=== PATIENT | male | born 1950 | race Caucasian/White ===

== ENCOUNTER 2016-09-26 10:28 | Inpatient (IN) | payer MEDICARE, MEDICAID, SELFPAY ==
[~2016-09-26 10:28] MED LIST: ACETAMINOPHEN325 M2 PO; AMBIEN5 M1 PO; ASPIRIN81 M1 PO; AUGMENTIN 875-1 EAC2 PO; CENTRUM CHEWAB1 EACH PO; CERTAVITE SR-A1 EACH PO; CLARITIN10 M6 PO; CLINDAMYCIN HC300 M2 PO; DULCOLAX10 MG PR; DULCOLAX5 M1 PO; EFFEXOR XR75 M1 PO; FINASTERIDE5 M2 PO; FLOMAX0.4 M1 PO; FLONASE ALLERG9.9 ML; LASIX20 M1 PO; LOVENOX100 MG/1 M SC; LOVENOX80 MG/0.1 SC; NORCO 5-325 TA1 EACH PO; PROTONIX40 M2 PO; RANITIDINE HCL300 M1 PO; SILDENAFIL20 M2 PO; SULFAMYLON60 GM EXT; SYNTHROID75 MC1 PO; TRAMADOL HCL50 M2 PO; VENLAFAXINE HCL75 M3 PO; VITAMIN D2000 UNIT PO; WARFARIN SODIU7.5 M2 PO; WARFARIN SODIUM10 M1 PO; ZEBETA5 M2 PO; [UNRECOGNIZED DRUG - CODE] PO; [UNRECOGNIZED DRUG - OTHER]
[2016-09-26 11:36] LABS: BASO % 0.9 % (0-2); EOS % 1.4 % (0-7); EOSINOPHIL ABSOLUTE COUNT 0.1 tho/cmm (0.0-0.7); HCT-HEMATOCRIT 38.4 % (36.0-53.5); HGB-HEMOGLOBIN 11.6 gm/dl (13.5-17.0); LYMPH % 12.9 % (20-45); LYMPH ABSOLUTE COUNT 0.6 tho/cmm (0.8-4.5); MCH (MEAN CORPUSCULAR HGB) 24.8 pg (28.0-32.0); MCHC MEAN CORPUSCULAR HGB CONC 30.2 % (32.0-36.0); MCV (MEAN CELL VOLUME) 82.1 fl (82.0-96.0); MEAN PLATELET VOLUME 10.7 cmc (9.4-12.4); MONO % 9.3 % (0-12); MONOCYTE ABSOLUTE COUNT 0.4 tho/cmm (0.0-1.2); NEUTROPHIL ABSOLUTE COUNT 3.3 tho/cmm (1.6-8.0); NEUTROPHIL-AUTOMATED 3.3 tho/cmm (1.6-8.0); NEUTROPHILS % 75.5 % (40-80); PLATELET COUNT 184 tho/cmm (150-450); RED BLOOD COUNT 4.68 mil/cmm (4.40-5.70); RED CELL DISTRIBUTION WIDTH 20.8 % (12.4-16.4); WHITE BLOOD COUNT 4.4 tho/cmm (4.0-10.0)
[2016-09-26 11:39] LABS: PROTHROMBIN TIME 11.9 SECONDS (9.0-13.6)
[2016-09-26 11:46] LABS: ANION GAP 10 mmol/L (0-20); BLOOD UREA NITROGEN 37 mg/dl (6-24); CALCIUM 8.5 mg/dl (8.5-10.5); CARBON DIOXIDE-VENOUS 23 mmol/L (22-32); CHLORIDE 110 mmol/l (96-110); CREATININE 1.78 mg/dl (0.60-1.30); GLUCOSE 85 mg/dL (70-110); SODIUM 138 mmol/L (135-145); eGFR VALUE FOR BLACK 46 mL/Min
[2016-09-27 06:12] LABS: IMMATURE GRANULOCYTES ABSOLUTE 0.01 tho/cmm (0-0.03); IMMATURE GRANULOCYTES PERCENT 0.1 % (0-0.3); LYMPH % 7.2 % (20-45); LYMPH ABSOLUTE COUNT 0.6 tho/cmm (0.8-4.5); MCV (MEAN CELL VOLUME) 81.8 fl (82.0-96.0); MEAN PLATELET VOLUME 10.1 cmc (9.4-12.4); MONOCYTE ABSOLUTE COUNT 0.6 tho/cmm (0.0-1.2); NEUTROPHIL ABSOLUTE COUNT 6.8 tho/cmm (1.6-8.0); NEUTROPHIL-AUTOMATED 6.8 tho/cmm (1.6-8.0); NEUTROPHILS % 84.7 % (40-80); PLATELET COUNT 163 tho/cmm (150-450); RED BLOOD COUNT 3.51 mil/cmm (4.40-5.70); RED CELL DISTRIBUTION WIDTH 20.6 % (12.4-16.4)
[2016-09-27 06:13] LABS: INR 1.1 INR (0.9-1.1); PROTHROMBIN TIME 12.8 SECONDS (9.0-13.6)
[2016-09-27 06:14] LABS: HCT-HEMATOCRIT 28.7 % (36.0-53.5); HGB-HEMOGLOBIN 8.6 gm/dl (13.5-17.0); MCH (MEAN CORPUSCULAR HGB) 24.5 pg (28.0-32.0)
[2016-09-27 06:26] LABS: ANION GAP 15 mmol/L (0-20); BLOOD UREA NITROGEN 31 mg/dl (6-24); CALCIUM 8.1 mg/dl (8.5-10.5); CARBON DIOXIDE-VENOUS 20 mmol/L (22-32); CHLORIDE 107 mmol/l (96-110); CREATININE 1.59 mg/dl (0.60-1.30); GLUCOSE 105 mg/dL (70-110); POTASSIUM 5.5 mmol/L (3.7-5.1); SODIUM 136 mmol/L (135-145); eGFR VALUE FOR BLACK 53 mL/Min
[2016-09-28 06:25] LABS: INR 1.4 INR (0.9-1.1); PROTHROMBIN TIME 16.6 SECONDS (9.0-13.6)
[2016-09-28 06:27] LABS: BASO % 0.5 % (0-2); EOS % 0.7 % (0-7); EOSINOPHIL ABSOLUTE COUNT 0.1 tho/cmm (0.0-0.7); HCT-HEMATOCRIT 27.9 % (36.0-53.5); HGB-HEMOGLOBIN 8.4 gm/dl (13.5-17.0); IMMATURE GRANULOCYTES ABSOLUTE 0.01 tho/cmm (0-0.03); IMMATURE GRANULOCYTES PERCENT 0.1 % (0-0.3); LYMPH ABSOLUTE COUNT 0.8 tho/cmm (0.8-4.5); MCH (MEAN CORPUSCULAR HGB) 24.4 pg (28.0-32.0); MCHC MEAN CORPUSCULAR HGB CONC 30.1 % (32.0-36.0); MCV (MEAN CELL VOLUME) 81.1 fl (82.0-96.0); MONO % 10.8 % (0-12); MONOCYTE ABSOLUTE COUNT 0.8 tho/cmm (0.0-1.2); NEUTROPHIL ABSOLUTE COUNT 5.8 tho/cmm (1.6-8.0); NEUTROPHIL-AUTOMATED 5.8 tho/cmm (1.6-8.0); NEUTROPHILS % 76.9 % (40-80); PLATELET COUNT 174 tho/cmm (150-450); RED BLOOD COUNT 3.44 mil/cmm (4.40-5.70); RED CELL DISTRIBUTION WIDTH 20.5 % (12.4-16.4); WHITE BLOOD COUNT 7.5 tho/cmm (4.0-10.0)
[2016-09-28 06:38] LABS: ANION GAP 14 mmol/L (0-20); BLOOD UREA NITROGEN 38 mg/dl (6-24); CALCIUM 8.1 mg/dl (8.5-10.5); CARBON DIOXIDE-VENOUS 23 mmol/L (22-32); CHLORIDE 103 mmol/l (96-110); GLUCOSE 115 mg/dL (70-110); POTASSIUM 4.5 mmol/L (3.7-5.1); SODIUM 135 mmol/L (135-145); eGFR VALUE FOR BLACK 35 mL/Min
[2016-09-28 06:43] LABS: CREATININE 2.25 mg/dl (0.60-1.30)
[2016-09-29 05:56] LABS: BASO % 0.6 % (0-2); EOS % 0.9 % (0-7); EOSINOPHIL ABSOLUTE COUNT 0.1 tho/cmm (0.0-0.7); HCT-HEMATOCRIT 25.8 % (36.0-53.5); HGB-HEMOGLOBIN 7.9 gm/dl (13.5-17.0); IMMATURE GRANULOCYTES ABSOLUTE 0.02 tho/cmm (0-0.03); IMMATURE GRANULOCYTES PERCENT 0.3 % (0-0.3); LYMPH % 9.4 % (20-45); LYMPH ABSOLUTE COUNT 0.6 tho/cmm (0.8-4.5); MCH (MEAN CORPUSCULAR HGB) 24.5 pg (28.0-32.0); MCHC MEAN CORPUSCULAR HGB CONC 30.6 % (32.0-36.0); MCV (MEAN CELL VOLUME) 80.1 fl (82.0-96.0); MEAN PLATELET VOLUME 10.3 cmc (9.4-12.4); MONO % 11.5 % (0-12); MONOCYTE ABSOLUTE COUNT 0.7 tho/cmm (0.0-1.2); NEUTROPHIL ABSOLUTE COUNT 4.9 tho/cmm (1.6-8.0); NEUTROPHIL-AUTOMATED 4.9 tho/cmm (1.6-8.0); NEUTROPHILS % 77.3 % (40-80); PLATELET COUNT 154 tho/cmm (150-450); RED BLOOD COUNT 3.22 mil/cmm (4.40-5.70); RED CELL DISTRIBUTION WIDTH 20.5 % (12.4-16.4); WHITE BLOOD COUNT 6.4 tho/cmm (4.0-10.0)
[2016-09-29 05:59] LABS: INR 1.8 INR (0.9-1.1)
[2016-09-29 06:30] LABS: ALB/GLOB RATIO 0.6 (0.8-2.0); ALKALINE PHOSPHATASE 94 U/L (33-138); ALT/SGPT 10 U/L (12-78); ANION GAP 13 mmol/L (0-20); AST/SGOT 39 U/L (10-40); BILIRUBIN,TOTAL 0.3 mg/dl (0.0-1.5); BLOOD UREA NITROGEN 34 mg/dl (6-24); CALCIUM 8.1 mg/dl (8.5-10.5); CARBON DIOXIDE-VENOUS 23 mmol/L (22-32); CHLORIDE 102 mmol/l (96-110); CREATININE 1.96 mg/dl (0.60-1.30); GLUCOSE 89 mg/dL (70-110); POTASSIUM 4.1 mmol/L (3.7-5.1); SODIUM 134 mmol/L (135-145); eGFR VALUE FOR BLACK 41 mL/Min
[2016-09-29] MEDS ORDERED: ULTRAM50 M1 PO (10:17)
[2016-09-29] MEDS ORDERED: BACITRACIN28.4 G2 TP (10:18)
[2017-03-05] MEDS ORDERED: TYLENOL325 M2 PO (21:08)
[2017-03-05] MEDS ORDERED: ALLOPURINOL100 M1 PO (21:08)
[2017-03-05] MEDS ORDERED: ASPIRIN81 M1 PO (21:09)
[2017-03-05] MEDS ORDERED: BISOPROLOL FUMA10 M1 PO (21:09)
[2017-03-05] MEDS ORDERED: CHLOR-TRIMETON4 M1 PO (21:10)
[2017-03-05] MEDS ORDERED: SYNTHROID75 MC1 PO (21:11)
[2017-03-05] MEDS ORDERED: FLONASE ALLERG9.9 ML (21:11)
[2017-03-05] MEDS ORDERED: LASIX20 M1 PO (21:11)
[2017-03-05] MEDS ORDERED: PROTONIX40 M2 PO (21:14)
[2017-03-05] MEDS ORDERED: CENTRUM CHEWAB1 EACH PO (21:14)
[2017-03-05] MEDS ORDERED: RANITIDINE HCL300 M2 PO (21:15)
[2017-03-05] MEDS ORDERED: SILDENAFIL20 M2 (21:15)
[2017-03-05] MEDS ORDERED: EFFEXOR XR75 M1 PO (21:16)
[2017-03-05] MEDS ORDERED: FLOMAX0.4 M1 PO (21:16)
[2017-03-05] MEDS ORDERED: ULTRAM50 M1 PO (21:16)
[2017-03-05] MEDS ORDERED: COUMADIN5 M2 PO ×2 (21:23→21:27)
[2017-03-06] MEDS ORDERED: PROSCAR5 M1 PO (11:35)
[2017-03-06] MEDS ORDERED: VITAMIN D32000 UNI2 PO (11:36)
[2017-03-24] MEDS ORDERED: VIBRAMYCIN100 M1 PO (11:38)
[2017-03-24] MEDS ORDERED: COMBIVENT RESPIM4 G1 AERO NEB (11:42)
[2017-03-24] MEDS ORDERED: AMBIEN5 M1 PO (11:57)
[2017-03-24] MEDS ORDERED: POLYETHYLENE G255 G1 PO (12:01)
[2017-03-24] MEDS ORDERED: SENNA PLUS TAB1 EAC1 PO (12:05)
[2017-03-24] MEDS ORDERED: FLONASE ALLERG9.9 ML ×2 (12:07→12:09)
[2017-03-24] MEDS ORDERED: MELATONIN3 M4 PO (12:22)
== END 2016-09-29 14:30 | DRG 470 ==
LOC: SHSA 10:28 → ORE 13:15 → PACU 15:36 → PCUB 16:45
PROVIDERS: Anesthesiology; Internal Medicine; Internal Medicine Cardiovascular Disease; Internal Medicine Interventional Cardiology; ADMIT Orthopaedic Surgery Orthopaedic Surgery of the Spine
PROC: 0SRD0J9 Replacement of Left Knee Joint with Synthetic Substitute, Cemented, Open Approach (ICD-10-PCS; principal; 2016-09-26)
DX: M17.12 Unilateral primary osteoarthritis, left knee (principal); N17.9 Acute kidney failure, unspecified; N18.3 Chronic kidney disease, stage 3 (moderate); E87.5 Hyperkalemia; D62 Acute posthemorrhagic anemia; N18.9 Chronic kidney disease, unspecified; K59.00 Constipation, unspecified; I12.9 Hypertensive chronic kidney disease with stage 1 through stage 4 chronic kidney disease, or unspecified chronic kidney disease; Z88.2 Allergy status to sulfonamides; Z88.1 Allergy status to other antibiotic agents; Z95.810 Presence of automatic (implantable) cardiac defibrillator; Z79.01 Long term (current) use of anticoagulants
CPT/HCPCS: C1713; C9290; J0690; J1644; J1650; J1940; J2270; J7030; J7050